=== PATIENT | female | born 1940 | race Caucasian/White ===

== ENCOUNTER → 2018-07-26 | Emergency (ER) | payer OTHER ==
[~2018-07-26] VITALS: Ht 167.6 cm; Wt 68.0 kg
[~2018-07-26] MED LIST: LEXAPRO5 MG; PRAVACHOL10 MG; SYNTHROID50 MCG; XANAX0.25 MG
== END | disposition home or self-care (01) ==
LOC: ER 09:32
DX: F41.8 Other specified anxiety disorders (principal)

== ENCOUNTER 2020-10-04 14:46 | Emergency (ER) | payer OTHER ==
[~2020-10-04] VITALS: Ht 165.1 cm; Wt 81.6 kg
== END 2020-10-04 22:19 | disposition designated cancer center or children's hospital (05) ==
LOC: ER 14:46
DX: S72.091A Other fracture of head and neck of right femur, initial encounter for closed fracture (principal); S52.591A Other fractures of lower end of right radius, initial encounter for closed fracture; R07.89 Other chest pain; W18.09XA Striking against other object with subsequent fall, initial encounter; Y93.89 Activity, other specified; Y92.018 Other place in single-family (private) house as the place of occurrence of the external cause; Y99.8 Other external cause status